=== PATIENT | male | born 1970 | race Caucasian/White ===

== ENCOUNTER 2017-11-19 08:10 | Emergency (ER) | payer MEDICAID ==
[~2017-11-19] VITALS: Ht 170.2 cm; Wt 68.0 kg
[~2017-11-19 08:10] MED LIST: BAC10T PO; CYCL-1 PO; HYDR-569 PO
[2017-11-19 08:15] VITALS: BP 132/107
[2017-11-19] MEDS ORDERED: ibuprofen tablet 400 MG TABLET PO ONE (08:50)
[2017-11-19] MEDS ORDERED: HYDROcodone/acetaminophen 10/325mg tab PO ONE (08:50)
[2017-11-19] MEDS ORDERED: IBUP-1984 PO (08:52)
[2017-11-19] MEDS ORDERED: CLIN-80 PO (08:52)
== END 2017-11-19 09:15 | disposition home or self-care (01) ==
LOC: ER 08:11
DX: K08.89 Other specified disorders of teeth and supporting structures (principal); J45.909 Unspecified asthma, uncomplicated; Z88.5 Allergy status to narcotic agent; Z88.8 Allergy status to other drugs, medicaments and biological substances; Z79.899 Other long term (current) drug therapy
CPT/HCPCS: 99283

== ENCOUNTER 2020-02-05 15:12 | Emergency (ER) | payer MEDICAID ==
[~2020-02-05] VITALS: Ht 170.2 cm; Wt 65.0 kg
[~2020-02-05 15:12] MED LIST changes: +CLIN-97 PO; +HYDR-4383 PO; -HYDR-569 PO
[2020-02-05] MEDS ORDERED: bacitracin 15gm ointment TP ONE (15:35)
[2020-02-05] MEDS ORDERED: ondansetron/PF 4mg/2ml inj IV PRN (15:35)
[2020-02-05] MEDS ORDERED: morphine 10mg/ml inj. IV ONE (15:35)
[2020-02-05] MEDS ORDERED: TETanus/Pertussis (Acell)/Diphther VAC/PF (Tdap-Adult) 0.5ml syringe IMVAC ONE (15:35)
[2020-02-05] MEDS ORDERED: ketamine 10mg/ml 20ml inj 20 MG in normal saline 100ml IV soln 98 ML IV ONE (15:35)
[2020-02-05] MEDS ORDERED: fentaNYL/PF 50MCG/1 ML 2ML syringe IV PRN (15:35)
[2020-02-05] MEDS ORDERED: ondansetron/PF 4mg/2ml inj IV ONE (15:35)
[2020-02-05] MEDS ORDERED: normal saline 1000ML IV soln IVB ONE (15:50)
--- NOTE | 2020-02-05 15:59 | NUR ---
WOUND UNDRESSED AND DOCUMENTED. PT CONTINUES TO REPORT PAIN.
[2020-02-05 16:55] VITALS: BP 123/74
== END 2020-02-05 16:59 | disposition short-term general hospital (02) ==
LOC: ER 15:12
DX: T23.202A Burn of second degree of left hand, unspecified site, initial encounter (principal); T23.201A Burn of second degree of right hand, unspecified site, initial encounter; T22.212A Burn of second degree of left forearm, initial encounter; T31.11 Burns involving 10-19% of body surface with 10-19% third degree burns; J45.909 Unspecified asthma, uncomplicated; Z98.890 Other specified postprocedural states; Z88.5 Allergy status to narcotic agent; Z88.8 Allergy status to other drugs, medicaments and biological substances; Z79.2 Long term (current) use of antibiotics; Z79.899 Other long term (current) drug therapy
CPT/HCPCS: 16025; 90471; 90715; 96365; 96375; 99285; J2405; J3010; J7030; 10120; 99284

== ENCOUNTER 2023-06-29 08:31 | Emergency (ER) | payer MEDICAID ==
[~2023-06-29] VITALS: Ht 170.2 cm; Wt 62.3 kg
[2023-06-29] MEDS ORDERED: ibuprofen tablet 400 MG TABLET PO STA (10:28)
[2023-06-29] MEDS ORDERED: HYDROcodone/acetaminophen 10/325mg tab PO ONE (10:30)
[2023-06-29] MEDS ORDERED: ibuprofen 200mg tablet PO STA (10:37)
[2023-06-29] MEDS ORDERED: ibuprofen 200mg tablet PO ONE ×2 (10:40→10:50)
[2023-06-29] MEDS ORDERED: IBUP-1984 PO (10:48)
[2023-06-29 11:09] VITALS: BP 152/104; PULSE 104; RESP 18; TEMP 97.7; O2SAT 99
--- NOTE | 2023-06-29 11:55 | NUR ---
[employer] WORK[employer] ASSESSMENT REVIEWED AND APPROVED BY NAYA WALSH.
== END 2023-06-29 11:12 | disposition home or self-care (01) ==
LOC: ER 08:31
DX: S56.911A Strain of unspecified muscles, fascia and tendons at forearm level, right arm, initial encounter (principal); K40.90 Unilateral inguinal hernia, without obstruction or gangrene, not specified as recurrent; J45.909 Unspecified asthma, uncomplicated; Z88.1 Allergy status to other antibiotic agents; Z88.5 Allergy status to narcotic agent; Z88.8 Allergy status to other drugs, medicaments and biological substances; Z79.899 Other long term (current) drug therapy
CPT/HCPCS: 73030; 73080; 99284; A4565